=== PATIENT | female | born 1955 ===

== ENCOUNTER → 2023-12-19 14:28 | Outpatient (BNVA) | payer MEDICARE, SELFPAY | PROVIDERS: Referring Provider Emergency Medicine; Visit Provider Internal Medicine Cardiovascular Disease | DX: R07.9 Chest pain, unspecified (principal) | CPT/HCPCS: 93005 ==

== ENCOUNTER 2024-01-26 07:30 | Outpatient (CLI) | payer MEDICARE, SELFPAY ==
[2024-01-26 07:56] VITALS: BMI 22.6
--- NOTE | 2024-01-26 08:00 | ECG_ITS ---
[facility] Test Date: 2024-01-26 Pat Name: Paul Parker Department: Room: Gender: Female Occup Ther: : 1955 Requested By: Noemy Osorio Order Number: [id number] Reading MD: Interpretive Statements Lung unchanged pre/post procedure; Intraprocedure shortess of breath; Symptoms resoled by discharge [id number]
--- NOTE | 2024-01-26 08:01 | NMCV_ITS ---
NM mery perf SPECT r/s* [id number] Paul Parker Age: 68 Gender: F : 1955 Exam Date: 01/26/2024 08:01 Ordering Phys: Noemy Osorio MD ([email or web address]) Technologist: TRINIDAD Gomez Exam Location: [facility] Indications: Abnormal EKG STRESS TEST Please see separate stress test report in [facility] for full findings IMAGE PROTOCOL Rest/Stress 1 Exercise Day Radiopharmaceutical Dose (mCi) Administration Site Administered by Rest: Tc-99m 10.8 IV TRINIDAD Gomez Sestamibi Stress:Tc-99m 32.6 IV TRINIDAD Gomez Sestamijonathan Rest: 26-Jan-2024 60 Discovery 630 Stress: 26-Jan-2024 30 Discovery 630 Radiopharmaceutical was injected at 97 % maximum heart rate. Images obtained in supine and prone position. SPECT RESULTS Technical Quality: Good Raw Data Analysis: Subdiaphragmatic activity Image Corrections: No attenuation or motion correction applied Summed Stress Score: 0 Summed Rest Score: 0 Summed Difference Score: 0 PERFUSION FINDINGS Fairly uniform myocardial tracer uptake with no significant Perfusion normalities FUNCTIONAL RESULTS (calculated via Gated SPECT) Stress Image LV EF (%): 73 Stress EDV (mL):60 TID: 1.15 Stress ESV (mL):16 FUNCTIONAL FINDINGS: Segmental wall motion analysis revealing no gross wall motion abnormalities. The transient ischemic dilatation ratio was 1.15, slightly elevated IMPRESSIONS 1. Myocardial perfusion imaging revealing uniform myocardial tracer uptake within normal Perfusion normalities. 2. Normal LV ejection fraction of 73%. 3. LV wall motion analysis revealing no gross wall motion abnormalities. 4. Normal LV volume 5. Slightly elevated transient ischemic dilatation ratio, may suggest endocardial ischemia. However the positive predictive value of this finding is limited. Possibly no significant coronary ischemia, based on the above findings No similar previous studies are available for comparison Dr Noemy Osorio MD [facility] (Electronically Signed) Final Date: 27 January 2024 00:42 S
[2024-01-26 10:16] VITALS: BP 133/87; PULSE 97
== END 2024-01-26 07:31 | disposition home or self-care (01) ==
LOC: CDL 07:33
PROVIDERS: PCP Family Medicine; Visit Provider Internal Medicine Cardiovascular Disease
DX: Z98.61 Coronary angioplasty status (principal); R06.02 Shortness of breath
CPT/HCPCS: 36415; 78452; 93017; A9500